=== PATIENT | male | born 1960 | race Caucasian/White ===

== ENCOUNTER 2021-08-29 11:33 | Emergency (ER) | payer BC ==
[2021-08-29] MEDS ORDERED: NAPROXEN 500 MG TABLET PO ONE (11:52)
[2021-08-29] MEDS ORDERED: NAPROXEN 500 MG TABLET ONE (11:56)
[2021-08-29 11:58] VITALS: BP 132/78; PULSE 82; TEMP 98.7; BMI 26.4
== END 2021-08-29 12:59 | disposition home or self-care (01) ==
LOC: FER 11:33
DX: S99.912A Unspecified injury of left ankle, initial encounter (principal); W01.0XXA Fall on same level from slipping, tripping and stumbling without subsequent striking against object, initial encounter
CPT/HCPCS: 73610-TC-LT-FY; 73630-TC-LT; 99283-25

== ENCOUNTER 2023-02-19 15:35 | Day surgery (SDC) | payer BC ==
[2023-02-19] MEDS ORDERED: IBUPROFEN 600 MG TABLET (FP) PO ONE ×2 (15:44→16:14)
[2023-02-19 15:49] VITALS: BMI 26.4
[2023-02-19] MEDS ORDERED: DIPHTH,PERTUSS(ACELL),TET 0.5 ML DISP.SYRIN IM ONE ×2 (16:44→16:49)
[2023-02-19 17:15] LABS: HEMATOCRIT 46.4 % (35.4-49); HEMOGLOBIN 15.7 G/dL (11.7-16.9); MCH 31.1 pg (25.7-33.7); MCHC 33.9 g/dl (32.0-35.9); MEAN CELL VOLUME 91.7 fl (80-96); MEAN PLT VOLUME 8.3 fl (7.5-11.1); PLATELET COUNT 203.7 10^3/uL (134-434); RBC 5.06 10^6/uL (4.00-5.60); RDW 14.5 % (11.9-15.9)
[2023-02-19 17:22] LABS: INR 1.07 (0.83-1.09); PROTHROMBIN TIME (PATIENT) 12.4 SEC (9.7-13.0)
[2023-02-19 17:24] LABS: ACTIVATED PTT 30.9 SECONDS (25.2-36.5)
[2023-02-19] MEDS ORDERED: ONDANSETRON 4 MG/2 ML VIAL IVPUSH PRN (17:31)
[2023-02-19] MEDS ORDERED: oxyCODONE HCL 5 MG TABLET PO PRN (17:31)
[2023-02-19 17:33] LABS: ALBUMIN 4.4 g/dl (3.4-5.0); BILIRUBIN,TOTAL 0.5 mg/dl (0.2-1); CALCIUM 9.4 mg/dl (8.5-10.1); CREATININE 0.8 mg/dl (0.6-1.3); POTASSIUM 4.1 mmol/L (3.5-5.1); URIC ACID 4.2 mg/dl (2.6-7.2)
[2023-02-19] MEDS ORDERED: ACETAMINOPHEN INJECTION 100 ML IVPB ONE (17:34)
[2023-02-19] MEDS ORDERED: PROPOFOL 20 ML ONE (17:38)
[2023-02-19] MEDS ORDERED: MIDAZOLAM HCL 2 MG/2 ML SINGLE DOSE VIAL ONE (17:38)
[2023-02-19] MEDS ORDERED: BUPIVACAINE HCL/PF 0.5% (5MG/ML) 10 ML VIAL ONE (17:50)
[2023-02-19] MEDS ORDERED: LIDOCAINE HCL 2% (20ML MULTI-DOSE VIAL) ONE (17:50)
[2023-02-19] MEDS ORDERED: ceFAZolin SODIUM 1 GM VIAL ONE (17:51)
[2023-02-19] MEDS ORDERED: BACITRACIN ZINC 15 GM TUBE TOPICAL OINTMENT ONE (17:51)
[2023-02-19] MEDS ORDERED: SUCCINYLCHOLINE CHLORIDE 200 MG/10 ML SYRINGE ONE (17:51)
[2023-02-19 18:04] LABS: ERYTHROCYTE SEDIMENTATION RATE 8 mm/hr (0-20); PLATELET ESTIMATE ADEQUATE
[2023-02-19] MEDS ORDERED: DEXAMETHASONE SOD PHOSPHATE 4 MG/1 ML VIAL ONE (18:15)
[2023-02-19] MEDS ORDERED: ONDANSETRON 4 MG/2 ML VIAL ONE (18:16)
[2023-02-19] MEDS ORDERED: KETOROLAC TROMETHAMINE 30 MG/1 ML VIAL ONE (18:16)
[2023-02-19] MEDS ORDERED: DOCUSATE SODIUM 100 MG CAPSULE (FP) PO PRN (19:36)
[2023-02-19] MEDS ORDERED: ONDANSETRON 4 MG/2 ML VIAL IVPB PRN (19:38)
[2023-02-19] MEDS ORDERED: PIPERACILLIN/TAZOBACTAM 4.5 GM VIAL IVPB ONE (20:38)
[2023-02-19] MEDS: LACTATED RINGERS SOLUTION 1,000 ML IV SCH ×2 (23:25→23:26)
[2023-02-19] MEDS: PIPERACILLIN/TAZOB 4.5 GM 4.5 GM in DEXTROSE 5%-WATER 100 ML IVPB SCH (23:26)
[2023-02-20] MEDS: PIPERACILLIN/TAZOB 4.5 GM 4.5 GM in DEXTROSE 5%-WATER 100 ML IVPB SCH ×5 (01:23→17:29)
[2023-02-20 09:01] LABS: CALCIUM 9.1 mg/dl (8.5-10.1); CREATININE 0.7 mg/dl (0.6-1.3); MAGNESIUM 2.1 mg/dL (1.8-2.4); POTASSIUM 4.3 mmol/L (3.5-5.1)
[2023-02-20] MEDS ORDERED: IBUPROFEN 400 MG TABLET (FP) PO PRN (09:12)
[2023-02-20 10:14] LABS: HEMATOCRIT 43.3 % (35.4-49); HEMOGLOBIN 14.7 GM/dL (11.7-16.9); MCH 30.3 pg (25.7-33.7); MEAN CELL VOLUME 89.3 fl (80-96); MEAN PLT VOLUME 8.9 fl (7.5-11.1); PLATELET COUNT 220 10^3/uL (134-434); RBC 4.85 M/mm3 (4.00-5.60); RDW 13.4 % (11.9-15.9); WHITE BLOOD COUNT 13.9 K/mm3 (4.0-10.0)
[2023-02-20] MEDS: ACETAMINOPHEN 325 MG TABLET (FP) PO PRN (10:48)
[2023-02-20] MEDS: PANTOPRAZOLE 40 MG TABLET PO SCH (18:33)
[2023-02-21] MEDS: PIPERACILLIN/TAZOB 4.5 GM 4.5 GM in DEXTROSE 5%-WATER 100 ML IVPB SCH ×2 (02:08→11:29)
[2023-02-21] MEDS: ACETAMINOPHEN 325 MG TABLET (FP) PO PRN (06:55)
[2023-02-21] MEDS ORDERED: BENZOCAINE/MENTHOL (CHLORASEPTIC ) LOZENGE MM PRN (07:05)
[2023-02-21] MEDS ORDERED: BENZOCAINE/MENTH/CETYLPYRD CL 1 EACH LOZENGE MM PRN (07:23)
[2023-02-21] MEDS: PANTOPRAZOLE 40 MG TABLET PO SCH (09:34)
[2023-02-21] MEDS: LACTATED RINGERS SOLUTION 1,000 ML IV SCH (11:21)
[2023-02-21] MEDS: oxyCODONE HCL 5 MG TABLET PO PRN ×2 (11:23→21:38)
[2023-02-21 11:30] LABS: HEMATOCRIT 37.5 % (35.4-49); HEMOGLOBIN 12.3 G/dL (11.7-16.9); MCH 30.3 pg (25.7-33.7); MCHC 32.8 g/dl (32.0-35.9); MEAN CELL VOLUME 92.3 fl (80-96); MEAN PLT VOLUME 8.4 fl (7.5-11.1); PLATELET COUNT 197.4 10^3/uL (134-434); RBC 4.06 10^6/uL (4.00-5.60); RDW 14.3 % (11.9-15.9); WHITE BLOOD COUNT 10.5 10^3/uL (4.0-10.8)
[2023-02-21 11:33] LABS: ADD RBC MORPHOLOGY YES
[2023-02-21 11:44] LABS: CALCIUM 9.1 mg/dl (8.5-10.1); CREATININE 0.8 mg/dl (0.6-1.3); POTASSIUM 3.9 mmol/L (3.5-5.1)
[2023-02-21] MEDS ORDERED: CEFTRIAXONE 2 GM-D5W BAG 2 GM/50 ML BAG IVPB SCH (15:15)
[2023-02-22 08:56] LABS: CALCIUM 9.1 mg/dl (8.5-10.1); CREATININE 0.7 mg/dl (0.6-1.3); POTASSIUM 4.1 mmol/L (3.5-5.1)
[2023-02-22] MEDS: PANTOPRAZOLE 40 MG TABLET PO SCH (09:58)
[2023-02-22] MEDS: CEFTRIAXONE 2 GM in DEXTROSE 5%-WATER 100 ML IVPB SCH (09:58)
[2023-02-22 10:00] LABS: BASO % 0.5 % (0-2.0); EOS % 1.8 % (0-4.5); HEMATOCRIT 40.6 % (35.4-49); HEMOGLOBIN 13.5 GM/dL (11.7-16.9); LYMPH % 33.1 % (8-40); MCH 30.4 pg (25.7-33.7); MCHC 33.2 g/dl (32.0-35.9); MEAN CELL VOLUME 91.6 fl (80-96); MEAN PLT VOLUME 8.7 fl (7.5-11.1); MONO % 7.2 % (3.8-10.2); NEUT % 57.4 % (42.8-82.8); PLATELET COUNT 201 10^3/uL (134-434); RBC 4.44 M/mm3 (4.00-5.60); WHITE BLOOD COUNT 10.2 K/mm3 (4.0-10.0)
[2023-02-22] MEDS: LACTATED RINGERS SOLUTION 1,000 ML IV SCH (12:11)
[2023-02-23 05:03] VITALS: RESP 18
[2023-02-23] MEDS: CEFTRIAXONE 2 GM in DEXTROSE 5%-WATER 100 ML IVPB SCH (09:00)
[2023-02-23] MEDS: PANTOPRAZOLE 40 MG TABLET PO SCH (09:01)
[2023-02-23 14:11] VITALS: BP 112/79; PULSE 68; TEMP 98.5
[2023-02-23 17:09] LABS: MYCOPLASMA PNEUMONIAE,IG G AB 347 U/mL (0-99); MYCOPLASMA PNEUMONIAE,IGM AB <770 U/mL (0-769)
== END 2023-02-23 17:13 | disposition home or self-care (01) ==
LOC: FER 15:35 → INTOOBSV 17:12 → FM/S 17:12 → UNDOADMOB 17:12 → FM/S 19:38 → FASUSAT 19:38 → FM/S 20:45 → FASUSAT 02-23 17:13
PROVIDERS: ATTEND Plastic Surgery
PROC: 0J9J0ZZ Drainage of Right Hand Subcutaneous Tissue and Fascia, Open Approach (ICD-10-PCS; 2023-02-19)
PROC: 05HY33Z Insertion of Infusion Device into Upper Vein, Percutaneous Approach (ICD-10-PCS; 2023-02-19)
PROC: 0X9J0ZZ Drainage of Right Hand, Open Approach (ICD-10-PCS; principal; 2023-02-19 18:17)
DX: M65.841 Other synovitis and tenosynovitis, right hand (principal); M00.9 Pyogenic arthritis, unspecified
CPT/HCPCS: 36415; 36569; 73110-TC-RT-FY; 73130-TC-RT-FY; 80048; 80053; 82550; 82962; 83735; 84100; 84550; 85025; 85027; 85610; 85651; 85730; 86140; 86738; 86850; 86900; 86901; 87040; 87070; 87075; 87116; 87205; 87206; 87491; 87591; 87633; 87651; 89060; 90715; 93005; 94760; 99285-25

== ENCOUNTER 2023-02-24 13:11 | Day surgery (SDC) | payer BC ==
[2023-02-24] MEDS ORDERED: CEFTRIAXONE 2 GM in SODIUM CHLORIDE 100 ML IVPB ONE (13:45)
[2023-02-24 14:08] VITALS: RESP 18
[2023-02-24 14:35] VITALS: BP 126/56; PULSE 52; TEMP 97.8; BMI 26.6
== END 2023-02-24 14:37 | disposition home or self-care (01) ==
LOC: FINJECTION 13:11 → FM/S 13:13 → FINJECTION 14:37
PROVIDERS: ATTEND Internal Medicine
DX: M65.841 Other synovitis and tenosynovitis, right hand (principal); M00.9 Pyogenic arthritis, unspecified
CPT/HCPCS: 96365

== ENCOUNTER 2023-02-25 12:43 | Day surgery (SDC) | payer BC ==
[2023-02-25] MEDS ORDERED: CEFTRIAXONE 2 GM in DEXTROSE 5%-WATER 100 ML IVPB ONE (13:00)
[2023-02-25 14:09] VITALS: BP 120/75; PULSE 78; RESP 16; TEMP 98.1
== END 2023-02-25 14:09 | disposition home or self-care (01) ==
LOC: FINJECTION 12:43 → FM/S 12:43 → FINJECTION 14:09
PROVIDERS: ATTEND Internal Medicine
DX: M65.841 Other synovitis and tenosynovitis, right hand (principal); M00.9 Pyogenic arthritis, unspecified
CPT/HCPCS: 96365

== ENCOUNTER 2023-02-26 12:16 | Day surgery (SDC) | payer BC ==
[2023-02-26] MEDS ORDERED: CEFTRIAXONE 2 GM in DEXTROSE 5%-WATER 100 ML IVPB ONE (12:30)
[2023-02-26 13:57] VITALS: BP 120/60; PULSE 76; RESP 16; TEMP 98.1
== END 2023-02-26 13:57 | disposition home or self-care (01) ==
LOC: FINJECTION 12:16 → FM/S 12:17 → FINJECTION 13:57
PROVIDERS: ATTEND Internal Medicine
DX: M65.841 Other synovitis and tenosynovitis, right hand (principal); M00.9 Pyogenic arthritis, unspecified
CPT/HCPCS: 96365

== ENCOUNTER 2023-02-27 13:22 | Day surgery (SDC) | payer BC ==
[2023-02-27] MEDS ORDERED: CEFTRIAXONE 2 GM in SODIUM CHLORIDE 100 ML IVPB SCH (13:45)
[2023-02-27 15:11] VITALS: BP 112/74; PULSE 80; RESP 16; TEMP 98
== END 2023-02-27 14:30 | disposition home or self-care (01) ==
LOC: FM/S 13:22 → FINJECTION 13:22
PROVIDERS: ATTEND Internal Medicine
DX: M65.841 Other synovitis and tenosynovitis, right hand (principal); M00.9 Pyogenic arthritis, unspecified
CPT/HCPCS: 96365

== ENCOUNTER 2023-02-28 13:04 | Day surgery (SDC) | payer BC ==
[2023-02-28] MEDS ORDERED: CEFTRIAXONE 2 GM in SODIUM CHLORIDE 100 ML IVPB SCH (13:45)
[2023-02-28 14:41] VITALS: BP 124/65; PULSE 69; RESP 14; TEMP 98.6
== END 2023-02-28 14:41 | disposition home or self-care (01) ==
LOC: FINJECTION 13:04 → FM/S 13:04 → FINJECTION 14:41
PROVIDERS: ATTEND Internal Medicine
DX: M65.841 Other synovitis and tenosynovitis, right hand (principal); M00.9 Pyogenic arthritis, unspecified
CPT/HCPCS: 96365

== ENCOUNTER 2023-03-01 12:47 | Day surgery (SDC) | payer BC ==
[2023-03-01] MEDS ORDERED: CEFTRIAXONE 2 GM in SODIUM CHLORIDE 100 ML IVPB SCH (13:15)
[2023-03-01 14:10] LABS: HEMOGLOBIN 14.9 G/dL (11.7-16.9); MCH 31.2 pg (25.7-33.7); MCHC 33.8 g/dl (32.0-35.9); MEAN PLT VOLUME 8.4 fl (7.5-11.1); PLATELET COUNT 207.9 10^3/uL (134-434); RBC 4.78 10^6/uL (4.00-5.60); RDW 13.5 % (11.9-15.9); WHITE BLOOD COUNT 9.8 10^3/uL (4.0-10.8)
[2023-03-01 14:21] VITALS: BP 119/78; PULSE 80; RESP 16; TEMP 98.4
[2023-03-01 14:24] LABS: ALBUMIN 4.3 g/dl (3.4-5.0); BILIRUBIN,TOTAL 0.4 mg/dl (0.2-1); CALCIUM 9.6 mg/dl (8.5-10.1); CREATININE 0.8 mg/dl (0.6-1.3); POTASSIUM 4.1 mmol/L (3.5-5.1); TOT PROT 6.5 g/dl (6.4-8.2)
== END 2023-03-01 14:21 | disposition home or self-care (01) ==
LOC: FINJECTION 12:47 → FM/S 12:49 → FINJECTION 14:21
PROVIDERS: ATTEND Internal Medicine
DX: M65.841 Other synovitis and tenosynovitis, right hand (principal); M00.9 Pyogenic arthritis, unspecified
CPT/HCPCS: 36415; 80053; 85027; 96365

== ENCOUNTER 2023-03-02 11:33 | Day surgery (SDC) | payer BC ==
[2023-03-02] MEDS ORDERED: CEFTRIAXONE 2 GM in SODIUM CHLORIDE 100 ML IVPB ONE (12:00)
[2023-03-02 13:12] VITALS: BP 122/76; PULSE 68; RESP 16; TEMP 98.5
== END 2023-03-02 13:12 | disposition home or self-care (01) ==
LOC: FM/S 11:33 → FINJECTION 11:33
PROVIDERS: ATTEND Internal Medicine
DX: M65.841 Other synovitis and tenosynovitis, right hand (principal); M00.9 Pyogenic arthritis, unspecified
CPT/HCPCS: 96365

== ENCOUNTER 2023-03-03 13:20 | Day surgery (SDC) | payer BC ==
[2023-03-03] MEDS ORDERED: CEFTRIAXONE 2 GM in SODIUM CHLORIDE 100 ML IVPB ONE (13:45)
[2023-03-03 13:52] VITALS: BP 100/71; PULSE 85; RESP 18; TEMP 98
== END 2023-03-03 14:41 | disposition home or self-care (01) ==
LOC: FINJECTION 13:20 → FM/S 13:20 → FINJECTION 14:41
PROVIDERS: ATTEND Internal Medicine
DX: M65.841 Other synovitis and tenosynovitis, right hand (principal)
CPT/HCPCS: 96365; 96367

== ENCOUNTER 2023-03-04 13:05 | Day surgery (SDC) | payer BC ==
[2023-03-04] MEDS ORDERED: CEFTRIAXONE 2 GM in SODIUM CHLORIDE 100 ML IVPB ONE (13:30)
[2023-03-04 14:56] VITALS: BP 112/78; PULSE 82; RESP 16; TEMP 98.3
== END 2023-03-04 14:57 | disposition home or self-care (01) ==
LOC: FINJECTION 13:05 → FM/S 13:06 → FINJECTION 14:57
PROVIDERS: ATTEND Internal Medicine
DX: M65.841 Other synovitis and tenosynovitis, right hand (principal)
CPT/HCPCS: 96365; 96367

== ENCOUNTER 2023-03-05 13:36 | Day surgery (SDC) | payer BC ==
[2023-03-05] MEDS ORDERED: CEFTRIAXONE 2 GM in SODIUM CHLORIDE 100 ML IVPB ONE (14:45)
[2023-03-05 15:42] VITALS: BP 123/60; PULSE 68; RESP 16; TEMP 98.1
== END 2023-03-05 17:27 | disposition home or self-care (01) ==
LOC: FINJECTION 13:36 → FM/S 13:37 → FINJECTION 17:27
PROVIDERS: ATTEND Internal Medicine
DX: M65.841 Other synovitis and tenosynovitis, right hand (principal)
CPT/HCPCS: 96365

== ENCOUNTER 2024-08-24 08:03 | Emergency (ER) | payer BC ==
[2024-08-24 08:17] VITALS: BP 144/90; PULSE 86; RESP 16; TEMP 98.4; BMI 26.4
[2024-08-24] MEDS ORDERED: RABIES IMMUNE GLOBULIN/PF 300 UNIT/ML (5 ML) VIAL IM ONE (08:50)
[2024-08-24] MEDS ORDERED: RABIES VACCINE (PCEC)/PF 2.5 UNIT/VIAL IM ONE (08:50)
[2024-08-24] MEDS ORDERED: AMOX TR/POT CLAV 875MG/125MG TABLETS (FP) ONE (08:59)
[2024-08-24] MEDS: AMOX TR/POT CLAV 875MG/125MG TABLETS (FP) PO ONE (09:11)
[2024-08-24] MEDS: RABIES IMMUNE GLOBULIN 300 UNITS/1 ML VIAL IM ONE (09:11)
[2024-08-24] MEDS: RABIES VACCINE (PCEC)/PF 2.5 UNIT/VIAL IM ONE (09:12)
== END 2024-08-24 09:16 | disposition home or self-care (01) ==
LOC: FER 08:03
PROC: 3E0234Z Introduction of Serum, Toxoid and Vaccine into Muscle, Percutaneous Approach (ICD-10-PCS; principal; 2024-08-24)
DX: S81.832A Puncture wound without foreign body, left lower leg, initial encounter (principal); Z29.14 Encounter for prophylactic rabies immune globulin; W55.51XA Bitten by raccoon, initial encounter
CPT/HCPCS: 90375; 90675; 99284-25

== ENCOUNTER 2024-08-31 15:46 | Emergency (ER) | payer BC ==
[2024-08-31 15:56] VITALS: BP 138/88; PULSE 83; RESP 18; TEMP 97.9; BMI 26.4
[2024-08-31] MEDS ORDERED: RABIES VACCINE (PCEC)/PF 2.5 UNIT/VIAL IM ONE (16:00)
[2024-08-31] MEDS: RABIES VACCINE (PCEC)/PF 2.5 UNIT/VIAL IM ONE (16:13)
== END 2024-08-31 16:30 | disposition home or self-care (01) ==
LOC: FER 15:46
PROC: 3E0234Z Introduction of Serum, Toxoid and Vaccine into Muscle, Percutaneous Approach (ICD-10-PCS; principal; 2024-08-31)
DX: Z29.14 Encounter for prophylactic rabies immune globulin (principal)
CPT/HCPCS: 90675; 99281-25

== ENCOUNTER 2024-09-07 16:49 | Emergency (ER) | payer BC ==
[2024-09-07] MEDS ORDERED: RABIES VACCINE (PCEC)/PF 2.5 UNIT/VIAL IM ONE (17:02)
[2024-09-07 17:04] VITALS: BP 137/76; PULSE 84; RESP 18; TEMP 98.1; BMI 26.4
[2024-09-07] MEDS: RABIES VACCINE (PCEC)/PF 2.5 UNIT/VIAL IM ONE (17:10)
== END 2024-09-07 17:12 | disposition home or self-care (01) ==
LOC: FER 16:49
PROC: 3E0234Z Introduction of Serum, Toxoid and Vaccine into Muscle, Percutaneous Approach (ICD-10-PCS; principal; 2024-09-07)
DX: Z29.14 Encounter for prophylactic rabies immune globulin (principal)
CPT/HCPCS: 90675; 99281-25